=== PATIENT | female | born 1965 | race Two or more races ===

== ENCOUNTER 2017-11-17 08:16 | Emergency (ER) | payer MEDICAID ==
[~2017-11-17] VITALS: Ht 157.5 cm; Wt 74.0 kg
[~2017-11-17 08:16] MED LIST: LORA1TAB PO
[2017-11-17 08:22] VITALS: BP 159/109
[2017-11-17] MEDS ORDERED: TETanus/Pertussis (Acell)/Diphther VAC/PF (Tdap-Adult) 0.5ml syringe IM ONE (08:50)
[2017-11-17] MEDS ORDERED: NAPR-56 PO (08:55)
[2017-11-17] MEDS ORDERED: ACET-2119 PO (08:55)
== END 2017-11-17 10:09 | disposition home or self-care (01) ==
LOC: ER 08:17
DX: S82.301A Unspecified fracture of lower end of right tibia, initial encounter for closed fracture (principal); S82.831A Other fracture of upper and lower end of right fibula, initial encounter for closed fracture; I10 Essential (primary) hypertension; Z79.1 Long term (current) use of non-steroidal anti-inflammatories (NSAID); Z79.899 Other long term (current) drug therapy; W18.30XA Fall on same level, unspecified, initial encounter; Y93.89 Activity, other specified; Y92.89 Other specified places as the place of occurrence of the external cause; Y99.8 Other external cause status
CPT/HCPCS: 29505; 73610; 90471; 90715; 99284

== ENCOUNTER 2017-11-22 14:12 | Outpatient (CLI) | payer MEDICAID ==
[~2017-11-22 14:12] MED LIST changes: +ACET-2119 PO; +NAPR-56 PO
[2017-11-22 14:18] VITALS: BP 151/85
== END 2017-11-22 14:27 | disposition home or self-care (01) ==
LOC: ORTHO 14:12
PROVIDERS: ATTEND Nurse Practitioner Family
DX: M77.31 Calcaneal spur, right foot (principal); S93.491A Sprain of other ligament of right ankle, initial encounter; Z56.0 Unemployment, unspecified; Z60.2 Problems related to living alone; W19.XXXA Unspecified fall, initial encounter; Y93.89 Activity, other specified; Y92.89 Other specified places as the place of occurrence of the external cause; Y99.8 Other external cause status
CPT/HCPCS: 73610; 99213; L4360

== ENCOUNTER 2017-12-13 09:17 | Outpatient (CLI) | payer MEDICAID ==
[2017-12-13 09:18] VITALS: BP 155/89
== END 2017-12-13 09:50 | disposition home or self-care (01) ==
LOC: ORTHO 09:17
PROVIDERS: ATTEND Nurse Practitioner Family
DX: S82.831D Other fracture of upper and lower end of right fibula, subsequent encounter for closed fracture with routine healing (principal); Z56.0 Unemployment, unspecified; Z60.2 Problems related to living alone; X58.XXXD Exposure to other specified factors, subsequent encounter
CPT/HCPCS: 73610; 99213

== ENCOUNTER 2018-01-03 11:26 | Outpatient (CLI) | payer MEDICAID ==
[~2018-01-03 11:26] MED LIST changes: -ACET-2119 PO; -NAPR-56 PO
== END 2018-01-03 11:55 | disposition home or self-care (01) ==
LOC: ORTHO 11:26
PROVIDERS: ATTEND Nurse Practitioner Family
DX: S82.831D Other fracture of upper and lower end of right fibula, subsequent encounter for closed fracture with routine healing (principal); M79.89 Other specified soft tissue disorders; Z56.0 Unemployment, unspecified; Z60.2 Problems related to living alone; X58.XXXD Exposure to other specified factors, subsequent encounter
CPT/HCPCS: 73610; 99213